=== PATIENT | male | born 1955 | race Caucasian/White ===

== ENCOUNTER 2018-05-02 08:15 | Day surgery (SDC) | payer OTHER, MEDICARE ==
[2018-05-02] MEDS ORDERED: LIDOCAINE 100 MG SYRINGE (10:19)
[2018-05-02] MEDS ORDERED: PROPOFOL 40 ML (10:19)
[2018-05-02] MEDS ORDERED: FENTAnyl 50 MCG/ML VIAL (10:19)
== END 2018-05-02 18:20 | disposition home or self-care (01) ==
LOC: GIL 08:15
DX: R19.4 Change in bowel habit (principal); K57.90 Diverticulosis of intestine, part unspecified, without perforation or abscess without bleeding; K64.8 Other hemorrhoids; E11.9 Type 2 diabetes mellitus without complications; I12.9 Hypertensive chronic kidney disease with stage 1 through stage 4 chronic kidney disease, or unspecified chronic kidney disease; N18.9 Chronic kidney disease, unspecified; I11.0 Hypertensive heart disease with heart failure; I50.9 Heart failure, unspecified; E78.5 Hyperlipidemia, unspecified
CPT/HCPCS: 45378; 82962